=== PATIENT | female | born 1975 | race Caucasian/White ===

== ENCOUNTER 2020-12-15 07:48 | Outpatient (CLI) | payer BC | END 2020-12-15 07:49 | disposition home or self-care (01) | LOC: CSHULT 07:48 | PROVIDERS: ATTEND Internal Medicine Gastroenterology | DX: R10.9 Unspecified abdominal pain (principal); K80.20 Calculus of gallbladder without cholecystitis without obstruction; N20.0 Calculus of kidney | CPT/HCPCS: 93975 ==

== ENCOUNTER 2022-03-07 11:20 | Outpatient (CLI) | payer BC | END 2022-03-07 11:21 | disposition home or self-care (01) | LOC: CSHLAB 11:20 | PROVIDERS: ATTEND Surgery | DX: Z20.822 Contact with and (suspected) exposure to COVID-19 (principal); K80.20 Calculus of gallbladder without cholecystitis without obstruction | CPT/HCPCS: 87811 ==